=== PATIENT | female | born 1955 | race Caucasian/White ===

== ENCOUNTER 2020-06-23 13:39 | Emergency (ER) | payer MEDICARE, OTHER ==
[2020-06-23 14:18] LABS: HEMOGLOBIN 13.3 gm/dl (12.3-15.3); RED BLOOD COUNT 4.57 M/UL (4.00-5.10); WHITE BLOOD COUNT 14.2 K/UL (4.5-11.0)
[2020-06-23] MEDS ORDERED: HUMULIN R100 UNIT/1 INJ (18:17)
[2020-06-23] MEDS ORDERED: COMFORT EZ SC (18:24)
== END 2020-06-23 18:37 | disposition home or self-care (01) ==
LOC: ER1 13:39
PROVIDERS: Physician Assistant
DX: E11.65 Type 2 diabetes mellitus with hyperglycemia (principal); Z95.5 Presence of coronary angioplasty implant and graft; Z79.84 Long term (current) use of oral hypoglycemic drugs; Z86.16 Personal history of COVID-19
CPT/HCPCS: 36600; 80053; 82009; 82803; 82962; 85025; 96374; 99284; J7030

== ENCOUNTER 2020-06-28 00:03 | Inpatient (IN) | payer MEDICARE, OTHER ==
[~2020-06-28] VITALS: Ht 165.1 cm; Wt 74.8 kg
[~2020-06-28 00:03] MED LIST: COMFORT EZ SC; HUMULIN R100 UNIT/1 INJ
[2020-06-28 03:36] LABS: RED BLOOD COUNT 5.27 M/UL (4.00-5.10); WHITE BLOOD COUNT 23.4 K/UL (4.5-11.0)
[2020-06-28] MEDS ORDERED: CARVEDILOL6.25 MG PO (09:10)
[2020-06-28] MEDS ORDERED: EUTHYROX25 MCG PO (09:11)
[2020-06-28] MEDS ORDERED: PREGABALIN50 MG PO (09:11)
[2020-06-28] MEDS ORDERED: METFORMIN HCL1000 MG PO (09:11)
[2020-06-28] MEDS ORDERED: ATORVASTATIN CA40 MG PO (09:12)
[2020-06-28] MEDS ORDERED: BRILINTA90 MG PO (09:12)
[2020-06-28] MEDS ORDERED: GLUCOTROL 10 MG10 MG PO (09:12)
[2020-06-28] MEDS ORDERED: COZAAR 25MG TAB25 MG PO (09:13)
[2020-06-28] MEDS ORDERED: COZAAR 50MG TAB50 MG PO (09:23)
[2020-06-28] MEDS ORDERED: OZEMPIC1 MG/0.75 SQ (09:23)
[2020-06-28] MEDS ORDERED: PANTOPRAZOLE SO20 MG PO (09:24)
[2020-06-28] MEDS ORDERED: LOW DOSE ASPIRI81 MG PO (09:24)
[2020-06-28] MEDS ORDERED: CLOPIDOGREL75 MG PO (09:25)
[2020-06-28] MEDS ORDERED: HUMULIN R100 UNIT/1 SQ (09:46)
[2020-06-29 03:25] LABS: HEMOGLOBIN 12.8 gm/dl (12.3-15.3); RED BLOOD COUNT 4.44 M/UL (4.00-5.10); WHITE BLOOD COUNT 10.5 K/UL (4.5-11.0)
[2020-06-29 04:16] LABS: BUN/CREATININE RATIO 44 (0-10)
[2020-06-30 03:46] LABS: BUN/CREATININE RATIO 26 (0-10)
[2020-07-01 02:55] LABS: HEMOGLOBIN 11.6 gm/dl (12.3-15.3); RED BLOOD COUNT 4.06 M/UL (4.00-5.10)
[2020-07-01 02:56] LABS: WHITE BLOOD COUNT 7.8 K/UL (4.5-11.0)
[2020-07-01 03:10] LABS: BUN/CREATININE RATIO 18 (0-10)
[2020-07-02] MEDS ORDERED: LANCET 30G-GLU1 EACH MC (12:38)
[2020-07-02] MEDS ORDERED: LANTUS INS100 UTS/M1 SQ (12:38)
== END 2020-07-02 17:55 | disposition home or self-care (01) | DRG 438 ==
LOC: ER1 00:03 → CDU 17:48 → M/S 17:48
PROVIDERS: Family Medicine; Internal Medicine; Physician Assistant; ADMIT Internal Medicine
PROC: 8E0ZXY6 Isolation (ICD-10-PCS; principal; 2020-06-28)
DX: K85.90 Acute pancreatitis without necrosis or infection, unspecified (principal); U07.1 COVID-19; J12.82 Pneumonia due to coronavirus disease 2019; E86.0 Dehydration; E11.65 Type 2 diabetes mellitus with hyperglycemia; E87.5 Hyperkalemia; T38.0X5A Adverse effect of glucocorticoids and synthetic analogues, initial encounter; I25.10 Atherosclerotic heart disease of native coronary artery without angina pectoris; Z95.5 Presence of coronary angioplasty implant and graft; Z79.84 Long term (current) use of oral hypoglycemic drugs; Z79.82 Long term (current) use of aspirin; Z79.899 Other long term (current) drug therapy; Z82.49 Family history of ischemic heart disease and other diseases of the circulatory system
CPT/HCPCS: 36415; 71045; 80048; 80053; 80061; 82009; 82550; 82553; 82803; 82962; 83036; 83605; 83690; 83735; 83874; 84132; 84439; 84443; 84484; 85025; 93005; 94644; 96365; 96372; 96375; 96376; 99285; C9113; J0610; J1650; J2270; J2405; J7030; U0002